=== PATIENT | male | born 1945 ===

== ENCOUNTER 2016-04-15 09:44 | Emergency (ER) | payer OTHER ==
[~2016-04-15] VITALS: Ht 170.2 cm; Wt 68.2 kg
[~2016-04-15 09:44] MED LIST: ACET325T51 PO; ALFU10TA11 PO; ATOR40TA69 PO; BENZ0.5T3 PO; BISA10EN RC; CARV6.252 PO; CLON0.1T14 PO; DOCU250C2 PO; DONE10TA42 PO; FERR-83 PO; HYDR-3940 PO; KETO120S3 TP; LISI40TA PO; MAGN400O4 PO; MEMA10TA20 PO; QUET25TA73 PO; SERT100T9 PO; TRAZ150T61 PO; [UNRECOGNIZED DRUG - CODE] TP
[2016-04-15 09:50] VITALS: BP 111/59; PULSE 71; RESP 14; O2SAT 94
--- NOTE | 2016-04-15 10:05 | ED.REPORT ---
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 Patient cannot remember when his leg began hurting. He uses a wheelchair for mobility. PMHx and ROS are extremely limited due to patient's condition. Nursing Notes Stated Complaint: L KNEE PAIN Chief Complaint: Extremity Trauma Nursing Notes Reviewed: Yes Allergies: Coded Allergies: Sulfa (Sulfonamide Antibiotics) (Verified Allergy, Unknown, 05/13/15) aspirin (Verified Allergy, Unknown, 05/13/15) Scheduled Alfuzosin ER (Alfuzosin ER) 10 Mg Tab.er.24h 10 MG PO DAILY Atorvastatin Calcium (Atorvastatin Calcium) 40 Mg Tablet 40 MG PO DAILY Carvedilol (Carvedilol) 6.25 Mg Tablet 6.25 MG PO BID Cephalexin (Keflex) 500 Mg Capsule 500 MG PO TID Clindamycin (Clindamycin) 300 Mg Capsule 300 MG PO TID Clonidine (Catapres) 0.1 Mg Tablet 0.1 MG PO BID Donepezil (Donepezil) 10 Mg Tablet 10 MG PO HS Ferrous Sulfate (Ferrous Sulfate) 325 Mg Tablet 325 MG PO Q2DAY Hydralazine (Hydralazine) 50 Mg Tablet 50 MG PO QID Lisinopril (Lisinopril) 40 Mg Tablet 40 MG PO DAILY Magnesium Hydroxide (Milk of Magnesia) 400 Mg/5 Ml Oral.susp 400 MG PO QID Memantine HCl (Memantine HCl) 10 Mg Tablet 10 MG PO BID Quetiapine Fumarate (Quetiapine Fumarate) 25 Mg Tablet 25 MG PO HS Sertraline HCl (Sertraline) 100 Mg Tablet 100 MG PO DAILY Trazodone HCl (Oleptro ER) 150 Mg Tab.er.24h 200 MG PO HS Scheduled PRN Acetaminophen (Acetaminophen) 325 Mg Tablet 325 MG PO Q4H PRN PRN For Pain Benztropine Mesylate (Benztropine Mesylate) 0.5 Mg Tablet 0.5 MG PO DAILY PRN PRN Tremor Bisacodyl (Bisacodyl Rectal) 10 Mg/30 Ml Enema 10 MG RC PRN PRN PRN For Constipation Docusate Sodium (Docusate Sodium) 250 Mg Capsule 250 MG PO BID PRN PRN For Constipation Methyl Salicylate/Menthol (Menthoderm Ointment) 120 Gm Oint...g. 120 GM TP TID PRN PRN For Pain Miscellaneous Medications Ketoconazole (Ketoconazole) 120 Ml Shampoo 120 ML TP Magnesium Hydroxide (Milk of Magnesia) 400 Mg/5 Ml Oral.susp 400 MG PO General Time Seen by MD: 10:15 Chief Complaint Other (left leg pain) Hx Obtained From: Patient Unable to Obtain Hx: Patient condition Arrived By: Ambulance Onset Occurred: Onset unknown Symptom Duration: Since onset Location: : Foot left: Knee left: Leg left Severity: Current: Mild Exacerbated by: Range of motion, Bending, Flexion Recent Healthcare: No recent doctor visit, No recent hospitalization Similar Sx Previous: No Past Medical History Past Medical History CVA with Left sided deficit MS Parkinsons Disease Dementia Reports: Hypertension, Stroke Past Surgical History Right BKA Smoking History Unknown if Ever Smoker Social History Other Social History: Lives in prison Ambulatory Status Wheelchair Review of Systems Musculoskeletal: Reports: Joint pain (left knee ) Complete sys rev & neg: except as marked. Physical Exam Initial Vital Signs Vital Signs (First) Date Time Temp Pulse Resp B/P Pulse Ox O2 Delivery O2 Flow Rate FiO2 04/15/16 09:50 37.2 71 14 111/59 94 Room Air Initial VS: Reviewed Head / Eyes: Atraumatic, Normocephalic, PERRL ENT: Mucous membranes moist, Conjunctiva normal, No scleral icterus Neck: Supple, Non-tender, Full range of motion Respiratory: Breath sounds normal, Clear to auscultation, No respiratory distress Abdomen / GI: Soft, Non-tender, No guarding, No rebound, No distention Upper Extremities: Vascular intact, Neuro intact, No swelling, No tenderness Left Knee: Negative: Warmth present knee has multiple scars muscle atrophy through entire left leg below knee amputation on right leg good capillary refill no palpable pulses non weight bearing- uses a wheelchair pain with movement of the ankle and knee no effusion or redness or warmth in the knee Left Foot: Positive: Erythema present slim erythema over the top of the left foot small abrasion over the second toe that looks infected tender over the top of the left foot General/Constitutional: Awake left side paralysis Respiratory / Chest: Atraumatic, Breath sounds NL, Breath sounds = bilat, No respiratory distress, No rales, No rhonchi, No wheezing, No retractions Cardiovascular: Heart rate NL, Regular rhythm, Heart sounds NL, No gallop, No murmurs, No rubs blood pressure from nursing facility 115-140 range systolic, 60's diastolic Re-Eval/Medical Decision Counseled Regarding: Diagnosis, Lab results, Need for follow-up, When/why to return to ED Discharge & Departure Impression: Primary Impression: Cellulitis of foot, left Additional Impression: Lower extremity pain Laterality: unspecified laterality Qualified Code: M79.606 - Pain in leg, unspecified Disposition: Home Discharge Condition All VS Reviewed: Yes Condition: Stable Additional Instructions: Thank you for coming to the Emergency Department today. You have an infection in your left leg. I am giving you 2 antibiotics, Augmentin and Clindamycin to take for 10 days until your infection has abated. Return to the Emergency Department if you experience any new or worsening symptoms or further signs of infection including fever and redness. We hope you feel better soon! Scribe Attestation Portion of this note were transcribed by [place]. I, Dr. Frias, personally performed the history, physical exam, and medical decision-making: I reviewed and confirmed the accuracy for the information in the transcribed note. Signed by: iliana Kate, 04/15/16 1100 Rosa Frias MD Apr 15, 2016 10:05 [place] Apr 15, 2016 10:45
[2016-04-15] MEDS ORDERED: Amoxicillin-Clav 875-125 mg Tablet PO ONE (10:25)
[2016-04-15 10:41] VITALS: BP 97/42; PULSE 66; RESP 10; O2SAT 93
[2016-04-15] MEDS ORDERED: CEPH-512 PO (11:45)
[2016-04-15] MEDS ORDERED: CLIN-78 PO (11:45)
[2016-04-15 12:55] VITALS: BP 125/49; PULSE 63; RESP 13; O2SAT 95
[2016-04-15 12:56] VITALS: BP 125/49; PULSE 63; RESP 13; O2SAT 95
== END 2016-04-15 13:00 | disposition home or self-care (01) ==
LOC: SED 09:44 → EDBD 09:44 → SED 13:00
DX: L03.116 Cellulitis of left lower limb (principal); M79.605 Pain in left leg; W22.8XXA Striking against or struck by other objects, initial encounter; Y92.129 Unspecified place in nursing home as the place of occurrence of the external cause; Y93.89 Activity, other specified; Y99.8 Other external cause status; I10 Essential (primary) hypertension; G35 Multiple sclerosis; G20 Parkinson's disease; I69.398 Other sequelae of cerebral infarction; Z89.511 Acquired absence of right leg below knee; Z99.3 Dependence on wheelchair; Z88.2 Allergy status to sulfonamides; Z88.6 Allergy status to analgesic agent